=== PATIENT | male | born 1990 | race Caucasian/White ===

== ENCOUNTER 2025-07-15 14:44 | Inpatient (IN) | payer MEDICAID, SELFPAY ==
[2025-07-15 14:52] VITALS: BP 109/63; PULSE 86; TEMP 36.7; O2SAT 98; BMI 31.0
--- NOTE | 2025-07-15 15:28 | ED.GENADUL1 ---
HPI HPI - General Adult General Chief complaint: Headache Stated complaint: WELLNESS Time Seen by Provider: 07/15/25 14:59 Source: patient Mode of arrival: walk-in Limitations: no limitations History of Present Illness HPI narrative: The patient is a 34-year-old male presenting to us from [facility] detox facility, he has been having some upper extremity shakes, as well as some headache that is mild, he mentioned that he also has some sweating at night, the patient is sleepy as he did not sleep well at night. patient is here for alcohol detox and his last alcohol intake was July 07 The patient admitted that he was drinking at least 30 beers In addition to 1 bottle of vodka daily Patient have history of liver cirrhosis as well as esophageal varices. Patient that he was admitted before going to [facility] to another facility where he was admitted then for liver disease management Related Data Allergies Allergy/AdvReac Type Severity Reaction Status Date / Time hydrocodone Allergy Mild itchy Verified 07/15/25 14:52 morphine AdvReac Mild Hives Verified 07/15/25 14:52 shellfish derived AdvReac Mild Hives Verified 07/15/25 14:52 tramadol AdvReac Mild Hives Verified 07/15/25 14:52 Review of Systems ROS Status of ROS 10 or more systems reviewed and unremarkable except as noted in history and below PFSH PFSH Social History Little interest or pleasure in doing things: not at all Feeling down, depressed, or hopeless: not at all Exam Narrative Exam Narrative: Nurses notes and vital signs reviewed and patient is not hypoxic. Patient looks sleepy General: Well-appearing and in no apparent distress. Skin: Warm, dry, no pallor noted. No rash. Head: Normocephalic, atraumatic. Neck: Supple, non-tender. Cardiovascular: Regular Rate and Rhythm without murmur, gallop or rub. Respiratory: No accessory muscle use or respiratory distress. Lungs are clear to auscultation, no wheezing, rales or rhonchi Chest Wall: no tenderness Back: No midline thoracic or lumbar vertebral tenderness. No CVA tenderness Musculoskeletal: normal ROM, no calf or popliteal tenderness, no lower extremity edema/swelling, the patient have some hand tremors when extending arms that is mild GI: Abdomen is soft, non-distended. Normal bowel sounds. No masses appreciated. No tenderness to palpation. No rebound, guarding, or rigidity noted. Neurological: A&O x4. No cranial nerve dysfunction observed. Constitutional Vital Signs, click to edit/add: Last Vital Signs Temp 98.0 F 07/15/25 14:52 Pulse 86 07/15/25 14:52 Resp 18 07/15/25 14:52 BP 109/63 07/15/25 14:52 Pulse Ox 98 07/15/25 14:52 O2 Del Method Room Air 07/15/25 14:52 Course Vital Signs Vital signs: Vital Signs Temperature 98.0 F 07/15/25 14:52 Pulse Rate 86 07/15/25 14:52 Respiratory Rate 18 07/15/25 14:52 Blood Pressure 109/63 07/15/25 14:52 Pulse Oximetry 98 07/15/25 14:52 Oxygen Delivery Method Room Air 07/15/25 14:52 Temperature 98.0 F 07/15/25 14:52 Pulse Rate 86 07/15/25 14:52 Respiratory Rate 18 07/15/25 14:52 Blood Pressure 109/63 07/15/25 14:52 Pulse Oximetry 98 07/15/25 14:52 Oxygen Delivery Method Room Air 07/15/25 14:52 Medical Decision Making MDM Narrative Medical decision making narrative: Patient CBC and chemistry showed no acute significant pathology but the AST and ALT were mildly elevated in the ammonia level was elevated as well Patient presentation is mostly secondary to hepatic encephalopathy specially with the patient history of liver cirrhosis and esophageal varices There is no active bleeding at the moment and the patient might be dehydrated as well he was provided with IV fluid CT of the head showed no acute pathology Patient was started on lactulose 20 g once for treatment of possible hepatic encephalopathy with elevated ammonia level above 70 Case discussed with and he agreed with above-mentioned plan Lab Data Labs: Lab Results 07/15/25 Range/Units 15:32 WBC 5.9 (4.0-11.0) 10^3/uL RBC 4.04 L (4.70-6.10) 10^6/uL Hgb 11.0 L (14.0-18.0) g/dL Hct 34.9 L (42.0-54.0) % MCV 86.4 (80.0-94.0) fL MCH 27.2 (25.9-34.0) pg MCHC 31.5 (29.9-35.2) g/dL RDW 19.0 H (11.0-15.0) % Plt Count 177 (150-450) 10^3/uL MPV 10.0 (9.5-13.5) fL Neut % (Auto) 66.6 (43.0-75.0) % Lymph % (Auto) 17.7 L (20.5-60.0) % [place] % (Auto) 12.0 (1.7-12.0) % Eos % (Auto) 2.4 (0.9-7.0) % Baso % (Auto) 1.0 (0.2-2.0) % Neut # (Auto) 4.0 (1.4-6.5) 10^3/uL Lymph # (Auto) 1.1 L (1.2-3.8) 10^3/uL [place] # (Auto) 0.7 (0.3-0.8) 10^3/uL Eos # (Auto) 0.1 (0.0-0.7) 10^3/uL Baso # (Auto) 0.1 (0.0-0.1) 10^3/uL Abs Immat Gran (auto) 0.02 (0.00-0.03) 10^3/uL Imm/Tot Granulo (auto) 0.3 (0.0-0.5) % PT 11.9 H (9.0-11.6) sec INR 1.14 Sodium 143 (136-145) mmol/L Potassium 4.6 (3.5-5.1) mmol/L Chloride 108 H (98-107) mmol/L Carbon Dioxide 27.0 (21.0-32.0) mmol/L Anion Gap 12.6 BUN 16.0 (7.0-18.0) mg/dL Creatinine 0.95 (0.70-1.30) mg/dL Est GFR ( Amer) >60 (>=60 mL/min/1.73m^2) Est GFR (Non-Af Amer) >60 (>=60 mL/min/1.73m^2) BUN/Creatinine Ratio 16.8 Glucose 102 (74-106) mg/dL Calcium 8.6 (8.5-10.1) mg/dL Phosphorus 4.4 (2.6-4.7) mg/dL Magnesium 1.9 (1.8-2.4) mg/dL Total Bilirubin 0.4 (0.2-1.0) mg/dL AST 92 H (15-37) U/L ALT 95 H (16-63) U/L Alkaline Phosphatase 113 (46-116) U/L Ammonia 73 H* (11-32) umol/L Total Protein 7.2 (6.4-8.2) g/dL Albumin 2.6 L (3.4-5.0) g/dL Globulin 4.6 g/dL Albumin/Globulin Ratio 0.6 Ethanol Quant <3 mg/dL Discharge Plan Discharge Chief Complaint: Headache Clinical Impression: Hepatic encephalopathy Patient Disposition: Admitted As Inpatient Time of Disposition Decision: 18:06
[2025-07-15 15:49] LABS: Hematocrit 34.9 % (42.0-54.0); Hemoglobin 11.0 g/dL (14.0-18.0); Immature Granulocytes Abs Auto 0.02 10^3/uL (0.00-0.03); Immature Granulocytes Pct Auto 0.3 % (0.0-0.5); Lymphocytes Absolute Auto 1.1 10^3/uL (1.2-3.8); Mean Corpuscular HGB Conc 31.5 g/dL (29.9-35.2); Mean Corpuscular Hemoglobin 27.2 pg (25.9-34.0); Mean Corpuscular Volume 86.4 fL (80.0-94.0); Platelet Count 177 10^3/uL (150-450); Red Blood Count 4.04 10^6/uL (4.70-6.10); White Blood Count 5.9 10^3/uL (4.0-11.0)
[2025-07-15] MEDS: 0.9 % SODIUM CHLORIDE 1,000 ML 1000 ML IV (15:59)
[2025-07-15 16:00] LABS: Ammonia 73 umol/L (11-32)
[2025-07-15 16:02] LABS: Alanine Aminotransferase 95 U/L (16-63); Albumin Globulin Ratio 0.6; Albumin Level 2.6 g/dL (3.4-5.0); Alkaline Phosphatase 113 U/L (46-116); Anion Gap 12.6; Aspartate Amino Transferase 92 U/L (15-37); Blood Urea Nitrogen 16.0 mg/dL (7.0-18.0); Calcium 8.6 mg/dL (8.5-10.1); Carbon Dioxide 27.0 mmol/L (21.0-32.0); Chloride 108 mmol/L (98-107); Estimated GFR (African America >60 (>=60 mL/min/1.73m^2); Estimated GFR (Non-African Ame >60 (>=60 mL/min/1.73m^2); Globulin 4.6 g/dL; Glucose 102 mg/dL (74-106); Magnesium 1.9 mg/dL (1.8-2.4); Potassium 4.6 mmol/L (3.5-5.1); Sodium 143 mmol/L (136-145); Total Protein 7.2 g/dL (6.4-8.2)
[2025-07-15 16:49] LABS: INR 1.14; Prothrombin Time 11.9 sec (9.0-11.6)
--- NOTE | 2025-07-15 16:55 | CT_ITS ---
The [address] [address] Patient Name: KAVON NAVARRO MRN: [id number] date: 1990 Sex: M Assigned Patient Location: ER Current Patient Location: ER Accession/Order Number: [id number] Exam Date: 07/15/2025 16:49 Report Date: 07/15/2025 17:26 At the request of: SILVER STANLEY MD Procedure: CT head/brain wo con Unenhanced head CT TECHNIQUE: Contiguous axial imaging of the head. The CT exam was performed using one or more the following dose reduction techniques: Automated exposure control, adjustment of the MA and/or Kv according to patient size, or use of the iterative reconstruction technique. COMPARISON: None HISTORY: Headache. Visual hallucinations. VENTRICLES: Within normal limits ATROPHY: None BRAIN PARENCHYMA: Adequate altman-white matter differentiation identified. HEMORRHAGE: None HERNIATION: No mass effect or herniation INFARCTION: No recent vascular distribution infarction is seen. EXTRA-AXIAL FLUID COLLECTIONS None MIDBRAIN: Unremarkable MARELY: Unremarkable MEDULLA: Unremarkable SINUSES: Unremarkable ORBITS: Grossly unremarkable MASTOIDS: Unremarkable BONY STRUCTURES Intact ADDITIONAL FINDINGS: CT/CT head/brain wo con IMPRESSION: No acute findings. Impression dictated by: Isiah Yun M.D. 07/15/2025 5:26 PM Dictation Location: [place] [address] Electronically authenticated by: [id number] Y Date: 07/15/2025 17:26
[2025-07-15] MEDS: LACTULOSE 10 GM/15 ML UD CUP 20 GM PO (16:57)
--- NOTE | 2025-07-15 17:42 | PC.NURSE ---
pt detoxed over weekend from alcohol and benzos. has been c/o shakiness and sweats. [facility] staff reported that pt has been increasingly lethargic and hallucinating. pt is AxOx4 and easily arousable. when asked about hallucinating, he states not realy, but every once in a while, I'll see like a shadow go past me in the corner of my eye .
[2025-07-15 19:39] VITALS: BP 110/67; PULSE 78; O2SAT 98
--- NOTE | 2025-07-15 20:12 | CT_ITS ---
[address] [address] Patient Name: KAVON NAVARRO MRN: [id number] date: 1990 Sex: M Assigned Patient Location: MS Current Patient Location: MS Accession/Order Number: [id number] Exam Date: 07/15/2025 22:05 Report Date: 07/15/2025 22:39 At the request of: RAQUEL GATES MD Procedure: CT abdomen pelvis wo con CT Abdomen and Pelvis withoutcontrast TECHNIQUE: Axial imaging with 2-D reconstruction. The CT exam was performed using one or more the following dose reduction techniques: Automated exposure control, adjustment of the MA and/or Kv according to patient size, or use of the iterative reconstruction technique. COMPARISON: None History: Abdominal pain LIMITATIONS: None LOWER THORAX esophageal varices. Recanalized umbilical vein LIVER: Liver cirrhosis. GALLBLADDER: Cholelithiasis identified.. Contracted gallbladder BILE DUCTS: No dilatation SPLEEN: Unremarkable PANCREAS: Unremarkable ADRENAL GLANDS: Unremarkable KIDNEYS:Unremarkable AORTA: No abdominal aortic aneurysm identified. RETROPERITONEUM: No significant retroperitoneal abnormalities identified. MESENTERY:Unremarkable STOMACH:Unremarkable SMALL BOWEL: The small bowel loops are nondistended. APPENDIX: The appendix is normal. COLON: Unremarkable URINARY BLADDER: Urinary bladder is unremarkable. REPRODUCTIVE SYSTEM: Reproductive structures are unremarkable. PNEUMOPERITONEUM: None PERITONEAL FLUID:None BONY STRUCTURES: Unremarkable ABDOMINAL WALL: Unremarkable CT/CT abdomen pelvis wo con IMPRESSION: No acute findings. Liver cirrhosis. Portal hypertension. Splenomegaly. Impression dictated by: Isiah Yun M.D. 07/15/2025 10:39 PM Dictation Location: [place] Electronically authenticated by: [id number] Y Date: 07/15/2025 22:39
[2025-07-15 20:13] VITALS: BP 164/110; PULSE 62; TEMP 36.3; O2SAT 100; BMI 32.0
[2025-07-15] MEDS: 0.9 % SODIUM CHLORIDE 1,000 ML 100 ML IV (21:00)
[2025-07-15] MEDS: ALPRAZOLAM 0.5 MG TABLET 1 MG PO (21:00)
[2025-07-15] MEDS: FOLIC ACID 1 MG TABLET PO (21:01)
[2025-07-15] MEDS: THIAMINE HCL 200 MG/2 ML VIAL IVP (21:01)
[2025-07-15] MEDS: HYDROMORPHONE HCL 1 MG/ML CARTRIDGE 0.5 MG IVP (21:01)
[2025-07-15] MEDS: LACTULOSE 10 GM/15 ML BOTTLE 237 ML 30 GM PO (21:03)
[2025-07-15 22:00] VITALS: PULSE 75
[2025-07-15 22:28] LABS: Cannabinoid Screen Urine NEGATIVE (NEGATIVE); Methamphetamines Screen Urine NEGATIVE (NEGATIVE); Tricyclic Antidepressant Urine NEGATIVE (NEGATIVE)
[2025-07-15 23:00] VITALS: BP 136/100; PULSE 81; TEMP 36.8; O2SAT 100
[2025-07-15 23:55] VITALS: PULSE 83
[2025-07-16] VITALS (18 sets, daily range): BP systolic 128–137; BP diastolic 74–100; PULSE 67–92; TEMP 36.2–36.7; O2SAT 97–100
[2025-07-16] MEDS: ALPRAZOLAM 0.5 MG TABLET 1 MG PO ×4 (02:45→22:10)
[2025-07-16] MEDS: HYDROMORPHONE HCL 1 MG/ML CARTRIDGE 0.5 MG IVP ×4 (02:46→22:10)
[2025-07-16] MEDS: LACTULOSE 10 GM/15 ML BOTTLE 237 ML 30 GM PO (05:48)
[2025-07-16 05:52] LABS: Hematocrit 35.8 % (42.0-54.0); Hemoglobin 11.4 g/dL (14.0-18.0); Immature Granulocytes Abs Auto 0.01 10^3/uL (0.00-0.03); Immature Granulocytes Pct Auto 0.2 % (0.0-0.5); Lymphocytes Absolute Auto 1.0 10^3/uL (1.2-3.8); Mean Corpuscular HGB Conc 31.8 g/dL (29.9-35.2); Mean Corpuscular Hemoglobin 27.3 pg (25.9-34.0); Mean Corpuscular Volume 85.6 fL (80.0-94.0); Platelet Count 161 10^3/uL (150-450); Red Blood Count 4.18 10^6/uL (4.70-6.10); White Blood Count 5.8 10^3/uL (4.0-11.0)
[2025-07-16 06:05] LABS: INR 1.16; Prothrombin Time 12.1 sec (9.0-11.6)
[2025-07-16 06:08] LABS: Ammonia 34 umol/L (11-32)
[2025-07-16 06:10] LABS: Alanine Aminotransferase 81 U/L (16-63); Albumin Globulin Ratio 0.6; Albumin Level 2.5 g/dL (3.4-5.0); Alkaline Phosphatase 121 U/L (46-116); Anion Gap 10.1; Aspartate Amino Transferase 65 U/L (15-37); Blood Urea Nitrogen 12.0 mg/dL (7.0-18.0); Calcium 8.7 mg/dL (8.5-10.1); Carbon Dioxide 26.8 mmol/L (21.0-32.0); Chloride 107 mmol/L (98-107); Estimated GFR (African America >60 (>=60 mL/min/1.73m^2); Estimated GFR (Non-African Ame >60 (>=60 mL/min/1.73m^2); Globulin 4.3 g/dL; Glucose 85 mg/dL (74-106); Magnesium 1.8 mg/dL (1.8-2.4); Potassium 3.9 mmol/L (3.5-5.1); Sodium 140 mmol/L (136-145); Total Protein 6.8 g/dL (6.4-8.2)
--- NOTE | 2025-07-16 08:15 | CM.NOTE ---
Rounds made with Dr. Richards, discussed plan of care. Pt is inpatient status, no discharge today. Pt currently at [facility].
[2025-07-16] MEDS: THIAMINE HCL 200 MG/2 ML VIAL IVP ×2 (08:30→21:29)
[2025-07-16] MEDS: FOLIC ACID 1 MG TABLET PO (08:30)
--- NOTE | 2025-07-16 09:24 | PM.HP ---
HPI H&P: HPI History of Present Illness Chief complaint: Hepatic Encephalopathry Narrative: Mr. Zabala is a 34-year-old gentleman with a known history of alcoholism. The patient was sent to the emergency room from the inpatient alcohol rehabilitation center with the complaint of altered mentation. Patient was found to be slightly confused. Ammonia level was 73. Patient denied any focal weakness or numbness. No fever or chills reported. No seizure or convulsion. I had accepted to admit patient for evaluation and treatment. I started him on lactulose. Patient has had multiple bowel movement. His ammonia level is down to 34. Patient is more awake and coherent. Patient stated that he used to drink alcohol very heavily. He was admitted recently to an outside hospital and had an EGD. He stated that he had esophageal varices that were banded. Opioid HPI Opioid Management Most Recent Pain and Opioid Data: Last Pain Scale 6 Today, 08:56 Last Pain Assessment Today, 08:56 Last MAR Pain Assessment Today, 04:23 Last ORT Total Score 17 07/15/25, 20:13 Last ORT Risk Category High Risk 07/15/25, 20:13 Ur Phencyclidine Scrn, (NEGATIVE) Negative 07/15/25, 22:00 PFSH PFSH Medical History (Updated 07/15/25 @ 18:40 by Lara Viveros RN) Depression ?F32.A - Depression, unspecified (ICD-10) Anxiety ?F41.9 - Anxiety disorder, unspecified (ICD-10) Substance abuse ?F19.10 - Other psychoactive substance abuse, uncomplicated (ICD-10) H/O ETOH abuse ?F10.11 - Alcohol abuse, in remission (ICD-10) Alcoholic cirrhosis of liver ?K70.30 - Alcoholic cirrhosis of liver without ascites (ICD-10) Surgical History (Updated 07/15/25 @ 20:41 by Dara Quintero) Hx of shoulder replacement ?Z96.619 - Presence of unspecified artificial shoulder joint (ICD-10) Family History (Updated 07/15/25 @ 20:42 by Dara Quintero) Other Family history of cancer Family history of hypertension Social History (Updated 07/15/25 @ 20:45 by Dara Quintero) Within the past year, how often did you have a drink containing alcohol: 4 or more times a week Within the past year, how many standard drinks containing alcohol did you have on a typical day: 5 or 6 Within the past year, how often did you have six or more drinks on one occasion: daily or almost daily Total score: 8 Score interpretation: A score of 4 or more indicates drinking is likely to affect patient's safety. Do you use any of these nicotine containing products: vaping products Non-prescribed substance use: denies use Highest level of school completed/degree received: high school graduate Are you now , , , , never or living with a partner: living with partner Little interest or pleasure in doing things: more than half the days Feeling down, depressed, or hopeless: more than half the days Feel stressed/tense/nervous/anxious/difficulty sleeping: to some extent Do you think of yourself as: straight/heterosexual Gender Identity: male Meds Home Medications and Allergies Home Medications ?Medication ?Instructions ?Recorded ?Confirmed ?Type acetaminophen 500 mg tablet 1,000 mg PO TID PRN fever or pain 07/15/25 07/16/25 History carvedilol 3.125 mg tablet 3.125 mg PO Q12H 07/15/25 07/15/25 History cholecalciferol (vitamin D3) 50 50 mcg PO DAILY 07/15/25 07/15/25 History mcg (2,000 unit) tablet duloxetine 30 mg capsule,delayed 30 mg PO BID 07/15/25 07/15/25 History release folic acid 1 mg tablet 1 mg PO DAILY 07/15/25 07/15/25 History gabapentin 800 mg tablet 800 mg PO TID 07/15/25 07/15/25 History hydroxyzine HCl 50 mg tablet 50 mg PO TID PRN anxiety 07/15/25 07/16/25 History levetiracetam 1,000 mg tablet 1,000 mg PO Q12H 07/15/25 07/15/25 History melatonin 5 mg tablet 5 mg PO .QHS 07/15/25 07/16/25 History midodrine 5 mg tablet 5 mg PO DAILY 07/15/25 07/15/25 History multivitamin with folic acid 400 1 tab PO DAILY 07/15/25 07/15/25 History mcg tablet (Tab-A-Monty) naltrexone 50 mg tablet 50 mg PO DAILY 07/15/25 07/16/25 History pantoprazole 40 mg tablet,delayed 40 mg PO DAILY 07/15/25 07/15/25 History release quetiapine 100 mg tablet 100 mg PO .QHS 07/15/25 07/15/25 History sucralfate 100 mg/mL oral 10 ml PO TID 07/15/25 07/15/25 History suspension thiamine HCl (vitamin B1) 100 mg 100 mg PO DAILY 07/15/25 07/15/25 History tablet bupropion HCl 150 mg 24 hr tablet, 150 mg PO QDAY 07/16/25 07/16/25 History extended release buspirone 15 mg tablet 15 mg PO TID 07/16/25 07/16/25 History clonidine HCl 0.1 mg tablet 0.1 mg PO TID PRN withdrawal 07/16/25 07/16/25 History symptoms cyclobenzaprine 10 mg tablet 10 mg PO BID PRN muscle spasticity 07/16/25 07/16/25 History docusate sodium 100 mg capsule 100 mg PO BID PRN constipation 07/16/25 07/16/25 History ibuprofen 800 mg tablet 800 mg PO TID PRN pain 07/16/25 07/16/25 History naltrexone microspheres 380 mg 380 mg IM .EVERY 4 WEEKS 07/16/25 07/16/25 History intramuscular suspension,extended release (Vivitrol) ropinirole 1 mg tablet 1 mg PO TID PRN restless leg(s) 07/16/25 07/16/25 History Allergies Allergy/AdvReac Type Severity Reaction Status Date / Time hydrocodone Allergy Mild itchy Verified 07/15/25 14:52 morphine AdvReac Mild Hives Verified 07/15/25 14:52 shellfish derived AdvReac Mild Hives Verified 07/15/25 14:52 tramadol AdvReac Mild Hives Verified 07/15/25 14:52 Exam Narrative Exam Narrative: [pt is awake and alert. oriented to place, time and person HEENT: [place] conjunctiva and NL buccal mucosa Neck: Supple, no tenderness Endocrine: No Thyromegaly. Vascular: No JVD or carotid bruit. Lymphatic: No cervical lymphadenopathy. Chest: CTA no DTP. Heart RRR, no extra sound or murmur. Abd: Soft, no tenderness, no rebound and no rigidity. Increase abd girth therefore clinically I could not exclude the possibility of intra abd mass or organomegaly. LE: No cyanosis or clubbing, no varices or edema. Neuro: A A O. Nl speech, comprehension and attention. Nl and symetrical motor and tone examination through out. []] Constitutional Vital Signs, click to edit/add: Last Vital Signs Temp 97.2 F L 07/16/25 07:38 Pulse 91 H 07/16/25 08:00 Resp 18 07/16/25 07:38 BP 130/92 H 07/16/25 07:38 Pulse Ox 97 07/16/25 07:38 O2 Del Method Room Air 07/16/25 07:38 Results Labs Labs: Short CBC 07/15/25 07/16/25 Range/Units 15:32 05:35 WBC 5.9 5.8 (4.0-11.0) 10^3/uL Hgb 11.0 L 11.4 L (14.0-18.0) g/dL Hct 34.9 L 35.8 L (42.0-54.0) % Plt Count 177 161 (150-450) 10^3/uL BMP 07/15/25 07/16/25 15:32 05:35 Sodium 143 140 Potassium 4.6 3.9 Chloride 108 H 107 Carbon Dioxide 27.0 26.8 BUN 16.0 12.0 Creatinine 0.95 0.77 Glucose 102 85 Calcium 8.6 8.7 Liver Function 07/15/25 07/16/25 Range/Units 15:32 05:35 Total Bilirubin 0.4 0.4 (0.2-1.0) mg/dL AST 92 H 65 H (15-37) U/L ALT 95 H 81 H (16-63) U/L Alkaline Phosphatase 113 121 H (46-116) U/L Albumin 2.6 L 2.5 L (3.4-5.0) g/dL Assessment and Plan Assessment and Plan (1) Hepatic encephalopathy: Plan Encephalopathy. Likely hepatic encephalopathy and toxic encephalopathy secondary to polypharmacy. With the possibility of Warnicke or Korsakoff encephalopathy CT head does not show acute intracranial process His ammonia level was elevated at 73. Mental status had improved with the lactulose and the patient having bowel movement as well as holding some of his polypharmacy Continue lactulose Simplify his polypharmacy to reduce the risk having encephalopathy and/or [employer]INE[employer]ING MANAGER side effect. No clinical evidence of ascites or SBP at this time. No ascites seen on CT that would be amenable to paracentesis. Alcoholism, patient was admitted to the inpatient alcohol rehabilitation unit. Prior to that, patient was admitted to an outside hospital. He stated that he had an EGD and banding of varices CAT scan of the abdomen showed evidence of portal hypertension and liver cirrhosis Last alcohol consumption was 10 days ago Slight elevation of the liver transaminase. PT and INR are slightly elevated. Normal bilirubin. Patient does not qualify for Decadron due to low Madrey score I started him on folic acid as well as intravenous thiamine to reduce risk of Warnicke's. Avoid anticoagulation for DVT due to his known esophageal varices and increased risk of the bleed Started patient on PPI. Start patient on beta-brigida to reduce portal hypertension. History of seizure on Keppra Patient is on Wellbutrin that could increase his risk of seizure Discontinue Wellbutrin Continue Keppra Polypharmacy as listed above I simplified his regimen slightly. I would continue to encourage his out patient providers to continue to simplify his regimen to reduce risk of drug?drug interaction or side effect.
--- NOTE | 2025-07-16 09:37 | SWNOTE1 ---
SW stopped in to see pt. Pt was sleeping, SW to try again later today. Pt is from [facility].
--- NOTE | 2025-07-16 09:44 | SWNOTE1 ---
ANDREW called [facility] and spoke to a nurse. Pt arrived at [facility] on 07/12. She is going to check with the doctor, but she does not see any reason documented that pt is not able to return once he is medically stable. ANDREW advised that ANDREW will send updates and there is no plan of discharge today. ANDREW faxed face sheet, ED note, H&P, labs, vitals, med list, diagnostic imaging, and shift assessment to [facility].
--- NOTE | 2025-07-16 09:59 | SWNOTE1 ---
SW stopped back in to see pt. SW was able to wake pt up. Pt voiced feeling drowsy at this time. He did confirm he was from [facility] and his plan is to return to [facility] at discharge to continue his recovery. Pt has no questions for SW at this time.
[2025-07-16] MEDS: DULOXETINE HCL 30 MG CAPSULE.DR 60 MG PO (10:10)
[2025-07-16] MEDS: PROPRANOLOL HCL 20 MG TABLET PO ×2 (10:10→21:28)
[2025-07-16] MEDS: LEVETIRACETAM 500 MG TABLET 1000 MG PO ×2 (10:10→21:29)
[2025-07-16] MEDS: BUSPIRONE HCL 15 MG TABLET PO ×2 (10:10→21:28)
[2025-07-16] MEDS: MAGNESIUM SULFATE IN WATER 2 GM/50 ML PREMIX IV (10:12)
[2025-07-16] MEDS: POTASSIUM CHLORIDE 10 MEQ ER TABLET 20 MEQ PO (10:12)
--- NOTE | 2025-07-16 10:23 | CM.NOTE ---
Discharge summary from [facility] obtained and given to Dr. Richards. Medication list given to RN from [facility].
[2025-07-16] MEDS: LACTULOSE 10 GM/15 ML BOTTLE 237 ML 20 GM PO ×2 (12:14→16:44)
[2025-07-16] MEDS: GABAPENTIN 100 MG CAPSULE 200 MG PO ×2 (14:39→21:28)
[2025-07-16] MEDS: PANTOPRAZOLE SODIUM 40 MG TABLET.DR PO (21:28)
[2025-07-16] MEDS: QUETIAPINE FUMARATE 100 MG TABLET PO (21:29)
[2025-07-17] VITALS (8 sets, daily range): BP systolic 100–102; BP diastolic 54–61; PULSE 65–75; TEMP 36.6–36.8; O2SAT 93–95
[2025-07-17] MEDS: GABAPENTIN 100 MG CAPSULE 200 MG PO (05:00)
[2025-07-17] MEDS: DULOXETINE HCL 30 MG CAPSULE.DR 60 MG PO (08:31)
[2025-07-17] MEDS: FOLIC ACID 1 MG TABLET PO (08:31)
[2025-07-17] MEDS: THIAMINE HCL 200 MG/2 ML VIAL IVP (08:31)
[2025-07-17] MEDS: PANTOPRAZOLE SODIUM 40 MG TABLET.DR PO (08:32)
[2025-07-17] MEDS: PROPRANOLOL HCL 20 MG TABLET PO (08:32)
[2025-07-17] MEDS: BUSPIRONE HCL 15 MG TABLET PO (08:32)
[2025-07-17] MEDS: LACTULOSE 10 GM/15 ML BOTTLE 237 ML 20 GM PO ×2 (08:34→11:01)
--- NOTE | 2025-07-17 08:55 | CM.NOTE ---
Rounds made with Dr. Richards, pt will discharge back to [facility]. Pt will not have f/u scheduled d/t being at [facility] and not from this area. Case Management gave pt information regarding Liver specialist and need to f/u after rehab. Pt verbalizes understanding of need to f/u with PCP also once discharged from [facility].
[2025-07-17] MEDS: LEVETIRACETAM 500 MG TABLET 1000 MG PO (09:24)
[2025-07-17] MEDS: ALPRAZOLAM 0.5 MG TABLET 1 MG PO (10:58)
--- NOTE | 2025-07-17 11:16 | PM.DS1 ---
DS: Providers Provider Date of admission: 07/15/25 19:35 Primary care physician: Non-Staff Physician, DS: Diagnosis Discharge Diagnosis (1) Hepatic encephalopathy: Plan As listed above, below and others that are not listed DS: Summary Hospital Course Hospital Course: Mr. Zabala is a 34-year-old gentleman who was sent to the emergency room from the inpatient alcohol rehab center with complaint of lethargy and diminished responsiveness. Encephalopathy. Likely hepatic encephalopathy and toxic encephalopathy secondary to polypharmacy. With the possibility of Warnicke or Korsakoff encephalopathy CT head does not show acute intracranial process His ammonia level was elevated at 73. Mental status had improved with the lactulose and the patient having bowel movement as well as holding some of his polypharmacy Continue lactulose. Ammonia level is down to 37. Simplify his polypharmacy to reduce the risk having encephalopathy and/or PATIENT CARE MANAGER side effect. No clinical evidence of ascites or SBP at this time. No ascites seen on CT that would be amenable to paracentesis. No fever, no leukocytosis. No significant abdominal pain. Patient will be discharged home on propranolol 10 mg twice a day Xifaxan 550 twice a day and lactulose 30 g twice a day to be titrated so patient can have 1-3 bowel movement in 24 hours. No more than 3 and no less than 1. Alcoholism, patient was admitted to the inpatient alcohol rehabilitation unit. Prior to that, patient was admitted to an outside hospital. He stated that he had an EGD and banding of varices CAT scan of the abdomen showed evidence of portal hypertension and liver cirrhosis Last alcohol consumption was 10 days ago Slight elevation of the liver transaminase. PT and INR are slightly elevated. Normal bilirubin. Patient does not qualify for Decadron due to low Madrey score I started him on folic acid as well as intravenous thiamine to reduce risk of Warnicke's. Avoid anticoagulation for DVT due to his known esophageal varices and increased risk of the bleed Started patient on PPI. Started patient on beta-brigida to reduce portal hypertension. I do recommend patient to follow-up with hepatology. He would need surveillance of his varices. He would need also adenocarcinoma surveillance. Patient lives near [place] in [place]. His PCP would need to arrange for him to follow-up with hepatology in that region. History of seizure on Keppra Patient is on Wellbutrin that could increase his risk of seizure Discontinued Wellbutrin Continue Keppra and gabapentin. Reduced gabapentin dose to reduce potential PATIENT CARE MANAGER side effect. Polypharmacy as listed above I simplified his regimen slightly. I eliminated some of the medicine that could cause him to have PATIENT CARE MANAGER depression. I would continue to encourage his out patient providers to continue to simplify his regimen to reduce risk of drug?drug interaction or side effect. Patient has multiple complex medical issues as listed above and others that are not listed. All appear to be stable. I do not have any clear or strong clinical justification to extend inpatient hospitalization. Patient however will require close and frequent monitoring as well as additional work-up, investigation and therapeutic intervention that could take place from this point on post discharge. That is to prevent relapse, decompensation, rehospitalization and other medical implications.. Discharge medications as listed are not final or set in stone. Primary care doctor and other out patient providers will need to titrate and adjust medications as soon as the first post discharge visit based on clinical progression, vitals signs, volume status and other related organs function. I instructed patient to ask her primary care doctor to obtain [facility] record entirely to address abnormalities seen on labs and imaging that I have and have not addressed during this hospitalization, follow-up on pending blood work, imaging and pathology is if available and to follow-up on needed medical care in the outpatient setting. Time Spent with Patient Time attestation: Total time spent providing and/or coordinating discharge services: Exam Narrative Exam Narrative: [pt is awake and alert. oriented to place, time and person HEENT: [place] conjunctiva and NL buccal mucosa Neck: Supple, no tenderness Endocrine: No Thyromegaly. Vascular: No JVD or carotid bruit. Lymphatic: No cervical lymphadenopathy. Chest: CTA no DTP. Heart RRR, no extra sound or murmur. Abd: Soft, mild tenderness, no rebound and no rigidity. Increase abd girth therefore clinically I could not exclude the possibility of intra abd mass or organomegaly. LE: No cyanosis or clubbing, no varices or edema. Neuro: A A O. Nl speech, comprehension and attention. Nl and symetrical motor and tone examination through out. []] Constitutional Vital Signs, click to edit/add: Last Vital Signs Temp 98.2 F 07/17/25 07:38 Pulse 75 07/17/25 09:53 Resp 18 07/17/25 07:38 BP 100/61 07/17/25 07:38 Pulse Ox 93 L 07/17/25 07:38 O2 Del Method Room Air 07/17/25 07:38 Discharge Plan Discharge Disposition: Xfer Inpatient Rehab Fac Discharge Medications: New lactulose 10 gram/15 mL Solution 30 g PO BID Qty: 473 2RF Rx Instructions: Increase or decrease the dose so patient can have at least 2 bowel movement in 24 hours. propranolol 10 mg tablet 10 mg PO BID Qty: 60 1RF Xifaxan 550 mg tablet 550 mg PO BID Qty: 60 1RF duloxetine 60 mg capsule,delayed release(DR/EC) 60 mg PO DAILY Qty: 60 2RF gabapentin 400 mg tablet 400 mg PO BID Qty: 60 0RF Continued folic acid 1 mg tablet 1 mg PO DAILY levetiracetam 1,000 mg tablet 1,000 mg PO Q12H melatonin 5 mg tablet 5 mg PO .QHS Rx Instructions: TAKE 1 TO 2 TABLETS PO QHS pantoprazole 40 mg tablet,delayed release (DR/EC) 40 mg PO DAILY quetiapine 100 mg tablet 100 mg PO .QHS cholecalciferol (vitamin D3) 50 mcg (2,000 unit) tablet 50 mcg PO DAILY Vivitrol 380 mg suspension,extended rel recon 380 mg IM .EVERY 4 WEEKS docusate sodium 100 mg capsule 100 mg PO BID PRN (Reason: constipation) ropinirole 1 mg tablet 1 mg PO TID PRN (Reason: restless leg(s)) Changed thiamine HCl (vitamin B1) 100 mg tablet 100 mg PO BID Qty: 30 0RF buspirone 15 mg tablet 15 mg PO BID Qty: 0 0RF Discontinued acetaminophen 500 mg tablet 1,000 mg PO TID PRN (Reason: fever or pain) Rx Instructions: TAKE ONE OR TWO TABS PO TID PRN carvedilol 3.125 mg tablet 3.125 mg PO Q12H duloxetine 30 mg capsule,delayed release(DR/EC) 30 mg PO BID gabapentin 800 mg tablet 800 mg PO TID midodrine 5 mg tablet 5 mg PO DAILY multivitamin with folic acid [Tab-A-Monty] 400 mcg tablet 1 tab PO DAILY naltrexone 50 mg tablet 50 mg PO DAILY sucralfate 100 mg/mL suspension 10 ml PO TID hydroxyzine HCl 50 mg tablet 50 mg PO TID PRN (Reason: anxiety) bupropion HCl 150 mg tablet extended release 24 hr 150 mg PO QDAY clonidine HCl 0.1 mg tablet 0.1 mg PO TID PRN (Reason: withdrawal symptoms) cyclobenzaprine 10 mg tablet 10 mg PO BID PRN (Reason: muscle spasticity) ibuprofen 800 mg tablet 800 mg PO TID PRN (Reason: pain) Print Language: Peruvian Activity Restrictions/Additional Instructions: I may not have addressed or treated all of your medical illnesses or the abnormal blood work or imaging studies during this hospitalization. Please ask your primary care provider to obtain [facility] records entirely to follow up on all of the abnormal physical, laboratory, and imaging findings that I have not addressed. Please return back to the emergency room or seek medical attention if your symptoms worsen or return. Please avoid any alcohol consumption. Please ask your primary care doctor to arrange for you to follow-up with the liver specialist near where you live. Please adjust lactulose taken slightly more or slightly less so you can have at least 1- 2 bowel movements in 24 hours but no more than 3 and no less than 1 bowel movements in 24 hours Discharging you from [facility] does not mean that your medical care ends here and now. You may still need additional monitoring, work up, investigation, and treatment plan to be handled from this point on by out patient providers including your primary care provider and specialists. For any medication question, please contact your retail pharmacist or your primary care provider. Thank you. Forms: Portal Instructions Follow Up Appointments: Call Tammie Canales NP to schedule a follow up appt. [phone]
--- NOTE | 2025-07-17 11:28 | SWNOTE1 ---
Pt is discharged today. ANDREW called [facility] and spoke with Maurice. ANDREW advised pt is ready for discharge today. He voiced they will send someone over to pick him up within half hour to an hour. ANDREW faxed dc summary and dc med rec to [facility]. ANDREW took packet to the floor and let pt's nurse, Dara know of time.
--- NOTE | 2025-07-17 19:07 | NUTR.NU ---
Pt was admitted w/dx hepatic encephalopathy. PO intakes of regular diet in-house are generally 100%. UTD his food intake SMITHA d/t substance abuse, and pt exhibits little interest in diet education. Pt to discharge from hospital today.
== END 2025-07-17 12:06 | DRG 280 ==
LOC: ER 18:41 → MS 20:07
PROVIDERS: Admitting Provider Internal Medicine; Emergency Provider Emergency Medicine; Visit Provider Internal Medicine
DX: K76.82 Hepatic encephalopathy (principal); G92.8 Other toxic encephalopathy; F32.A Depression, unspecified; R56.9 Unspecified convulsions; K70.30 Alcoholic cirrhosis of liver without ascites; F41.9 Anxiety disorder, unspecified; Z96.619 Presence of unspecified artificial shoulder joint; F17.290 Nicotine dependence, other tobacco product, uncomplicated; Z79.899 Other long term (current) drug therapy; F10.20 Alcohol dependence, uncomplicated; K76.6 Portal hypertension; I85.10 Secondary esophageal varices without bleeding; R74.01 Elevation of levels of liver transaminase levels
CPT/HCPCS: 36415; 70450; 74176; 80053; 80307; 80320; 82140; 83735; 84100; 85025; 85610; 99285; J1171; J3411; J3475